=== PATIENT | female | born 1990 | race American Indian/Alaskan Native ===

== ENCOUNTER 2018-12-19 08:54 | Inpatient (IN) | payer MEDICAID ==
--- NOTE | 2018-12-19 09:36 | History and Physical Report ---
History of Present Illness Date of examination: 12/19/18 Date of admission: 12/19/2018 Chief complaint: My water broke History of present illness: Pt is a 28 year old who presents with rom and contractions at 40.3 weeks. Pt has had an uncomplicated course . She is HSV positive and GBS positive. 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 Family/Genetic History: none Social history: - Obstetrical History Expected Date of Delivery: 12/15/18 Actual Gestation: 40 Week(s) 4 Day(s) : 5 Para: 3 Number of Living Children: 3 Medications and Allergies Allergies Allergy/AdvReac Type Severity Reaction Status Date / Time No Known Allergies Allergy Unverified 03/28/15 14:24 Home Medications Medication Instructions Recorded Confirmed Last Taken Type Ciprofloxacin HCl [Ciprofloxacin 500 mg PO BID #14 tablet 03/28/15 Unknown Rx TAB] Ibuprofen [Motrin 800 MG tab] 800 mg PO Q8HR PRN #30 tablet 03/28/15 Unknown Rx Ondansetron [Zofran Odt] 4 mg PO Q6HR #20 tab.rapdis 03/28/15 Unknown Rx Active Meds: Active Medications Butorphanol Tartrate (Stadol) 2 mg IV Q2H PRN PRN Reason: Pain , Severe (7-10) Ephedrine Sulfate (Ephedrine Sulfate) 10 mg IV Q2M PRN PRN Reason: Hypotension Fentanyl (Sublimaze) 100 mcg IV Q2H PRN PRN Reason: Labor Pain Oxytocin/Sodium Chloride (Pitocin/Ns 20 Unit/1000ml Drip) 20 units in 1,000 mls @ 125 mls/hr IV DIRECT WEST Oxytocin/Sodium Chloride (Pitocin/Ns 30 Unit/500ml) 30 units in 500 mls @ 1 mls/hr IV TITR WEST; Protocol Oxytocin/Sodium Chloride (Pitocin/Ns 30 Unit/500ml) 30 units in 500 mls @ 2 mls/hr IV TITR WEST; Protocol Lactated Ringer's (Lactated Ringers) 1,000 mls @ 125 mls/hr IV DIRECT WEST Ampicillin Sodium (Ampicillin/Ns 1 Gm/50 Ml) 1 gm in 50 mls @ 100 mls/hr IV Q4HR WEST; Protocol Ampicillin Sodium (Ampicillin/Ns 2 Gm/100 Ml) 2 gm in 100 mls @ 100 mls/hr IV ONCE ONE; Protocol Stop: 12/19/18 10:07 Lidocaine (Xylocaine 2%) 20 ml INFILTRATI ONCE ONE Stop: 12/19/18 09:09 Mineral Oil (Mineral Oil) 30 ml PO QHS PRN PRN Reason: Constipation Nalbuphine HCl (Nubain) 10 mg IV Q2H PRN PRN Reason: Pain, Moderate (4-6) Ondansetron HCl (Zofran) 4 mg IV Q8H PRN PRN Reason: Nausea And Vomiting Terbutaline Sulfate (Brethine) 0.25 mg SUB-Q ONCE PRN PRN Reason: Hyperstimulation/Hypertonicity Terbutaline Sulfate (Brethine) 0.25 mg IVP ONCE PRN PRN Reason: Hyperstimulation/Hypertonicity Review of Systems All systems: negative Eyes: deferred Gastrointestinal: abdominal pain Genitourinary: leakage of fluid, contractions - Physical Exam Cardiovascular: Regular rate, Normal S1, Normal S2 Lungs: Positive: Clear to auscultation, Normal air movement Abdomen: Positive: normal appearance, soft, normal bowel sounds Genitourinary (Female): Positive: normal external genitalia, normal perenium Vulva: both: normal Vagina: Positive: normal moisture Uterus: Positive: normal size, normal contour Extremities: Positive: normal - Obstetrical Cervical Dilatation: 7 Cervical Effacement Percentage: 80 station: 0 Uterine Contraction Pattern: Regular Uterine Tone Measurement Phase: Contraction Uterine Contraction Intensity: Moderate Results All other labs normal. Assessment and Plan IUP at 40.4 weeks in active labor. Admit for delivery. Will try to treat for GBS status with ampicillin. Anticipate .
[2018-12-19] MEDS ORDERED: PITOCin/NS 20 UNIT/1000ML DRIP 20 UNITS/1,000 ML BAG IV SCH (10:00)
[2018-12-19 10:03] LABS: Hematocrit 32.1 % (30.3-42.9); Hemoglobin 10.4 gm/dl (10.1-14.3); Mean Corpuscular HGB Conc 33 % (30-34); Mean Corpuscular Volume 92 fl (79-97); Platelet Count 163 K/mm3 (140-440); Red Blood Count 3.48 M/mm3 (3.65-5.03); Red Cell Distribution Width 14.2 % (13.2-15.2)
--- NOTE | 2018-12-19 10:19 | Procedure Note ---
OB Delivery Note - Delivery Date of Delivery: 12/19/18 Surgeon: FESTUS JEFFRIES Estimated blood loss: 300cc - Vaginal Delivery presentation: vertex Delivery position: OA Delivery induction: none Delivery augmentation: rupture of membranes Delivery monitor: external FHT, external uterine Route of delivery: Delivery placenta: spontaneous Delivery cord: 3 umbilical vessels Episiotomy: none Delivery laceration: none Anesthesia: none - A at 1 minute: 8 at 5 minutes: 9 Gender: Male (7 POUNDS 12 OUNCES)
[2018-12-19] MEDS ORDERED: PITOCin/NS 30 UNIT/500ML 30 UNITS/500 ML BAG IV SCH ×2 (11:00)
[2018-12-19] MEDS ORDERED: XYLOCAINE 2% INFILTRATI NR (11:00)
[2018-12-19] MEDS ORDERED: STADOL IV PRN (11:00)
[2018-12-19] MEDS ORDERED: ZOFRAN IV PRN ×2 (11:00→13:57)
[2018-12-19] MEDS ORDERED: LACTATED RINGERS 1,000 ML IV SCH (11:00)
[2018-12-19] MEDS ORDERED: SUBLIMAZE IV PRN (11:00)
[2018-12-19] MEDS ORDERED: BRETHINE IVP PRN (11:00)
[2018-12-19] MEDS ORDERED: MINERAL OIL PO PRN (11:00)
[2018-12-19] MEDS ORDERED: NUBAIN IV PRN (11:00)
[2018-12-19] MEDS ORDERED: NORCO 5/325 PO PRN (11:22)
[2018-12-19] MEDS ORDERED: BRETHINE SUB-Q PRN (11:30)
[2018-12-19] MEDS ORDERED: AMPICILLIN/NS 2 GM/100 ML 2 GM/100 ML BAG IV ONE (12:00)
[2018-12-19] MEDS ORDERED: AMPICILLIN/NS 1 GM/50 ML 1 GM/50 ML BAG IV SCH (13:30)
[2018-12-19] MEDS ORDERED: PHENERGAN PO PRN (13:57)
[2018-12-19] MEDS ORDERED: BENADRYL PO PRN (13:57)
[2018-12-19] MEDS ORDERED: TUCKS PAD TP PRN (13:57)
[2018-12-19] MEDS ORDERED: TORADOL IV PRN (13:57)
[2018-12-19] MEDS ORDERED: TYLENOL PO PRN (13:57)
[2018-12-19] MEDS ORDERED: DULCOLAX PR PRN (13:57)
[2018-12-19] MEDS ORDERED: LANSINOH TP PRN (13:57)
[2018-12-19] MEDS ORDERED: SODIUM CHLORIDE FLUSH SYRINGE 10 ML IV NR (13:57)
[2018-12-19] MEDS ORDERED: PHENERGAN PR PRN (13:57)
[2018-12-19] MEDS: IBUPROFEN PO SCH (17:22)
[2018-12-19] MEDS: COLACE PO SCH (21:42)
[2018-12-19] MEDS: SENOKOT S PO SCH (21:44)
[2018-12-19] MEDS ORDERED: MILK OF MAGNESIA PO PRN (22:00)
[2018-12-20] MEDS: IBUPROFEN PO SCH ×4 (01:21→21:56)
[2018-12-20 01:23] LABS: Hematocrit 28.9 % (30.3-42.9); Hemoglobin 9.3 gm/dl (10.1-14.3)
[2018-12-20] MEDS: PRENATAL VITAMIN PO SCH (09:58)
[2018-12-20] MEDS: COLACE PO SCH ×2 (09:59→21:56)
[2018-12-20] MEDS: SENOKOT S PO SCH (11:26)
--- NOTE | 2018-12-20 11:59 | Progress Note ---
Assessment and Plan PPD1 s/p VSS Acute anemia- iron supplementation Discharge to home tomorrow Subjective - Subjective Date of service: 12/20/18 Principal diagnosis: Interval history: Pt is PPD1 s/p Patient reports: appetite normal, voiding normally, pain well controlled, ambulating normally [place]: doing well, nursing well Objective - Vital Signs Latest vital signs: Vital Signs Temp Pulse Resp BP BP Pulse Ox 12/20/18 08:56 97.9 F 18 111/52 12/20/18 08:00 97.9 F 78 18 111/52 12/20/18 01:30 97.9 F 75 20 104/62 12/19/18 21:10 98.4 F 82 22 114/70 12/19/18 16:06 97.5 F L 62 18 101/64 98 12/19/18 13:42 98.6 F 75 16 93/58 97 Intake and Output 12/19/18 12/20/18 12/20/18 23:59 07:59 15:59 Intake Total 240 360 Output Total 1600 600 Balance -1360 -240 Intake: Intake, Free Water 240 360 Output: Urine 1600 600 Void 1600 600 Other: Total, Output Amount 800 600 # Voids Void 1 - Exam Breasts: Present: deferred Lungs: Present: Normal air movement Abdomen: Present: normal appearance, soft Uterus: Present: normal, firm, fundal height below umbilicus Extremities: Present: normal - Labs Labs: Abnormal lab results 12/20/18 Range/Units 00:48 Hgb 9.3 L (10.1-14.3) gm/dl Hct 28.9 L (30.3-42.9) %
--- NOTE | 2018-12-20 13:32 | Discharge Summary ---
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 Met discharge criteria on PPD1. She desires fertility awareness method and condoms . Condition at discharge: Good Disposition: DC-01 TO HOME OR SELFCARE Plan - Discharge Medications Prescriptions: Ferrous Sulfate [Ferrous Sulfate 324 MG] 324 mg PO BID #60 tablet. Ibuprofen [Motrin] 600 mg PO Q6H PRN #60 tablet PRN Reason: Pain - Provider Discharge Summary Activity: routine, no sex for 6 weeks, no heavy lifting 4 weeks, no strenuous exercise Diet: routine Instructions: routine Additional instructions: [] Smoking cessation referral if applicable(refer to patient education folder for contact #) [] Refer to [facility] Booklet Call your doctor immediately for: * Fever > 100.5 * Heavy vaginal bleeding ( >1 pad per hour) * Severe persistent headache * Shortness of breath * Reddened, hot, painful area to leg or breast * Drainage or odor from incision. * Keep incision clean and dry at all times and follow doctor's instructions regarding bathing/showering - Follow up plan Follow up: FESTUS JEFFRIES MD [Family Provider] - 6 Weeks (Please call to schedule an appointment.)
[2018-12-21] MEDS: SENOKOT S PO SCH ×2 (04:23→11:56)
[2018-12-21 09:13] VITALS: BP 107/61
[2018-12-21] MEDS: COLACE PO SCH (10:49)
[2018-12-21] MEDS: PRENATAL VITAMIN PO SCH (10:49)
[2018-12-21] MEDS: IBUPROFEN PO SCH (11:57)
--- NOTE | 2018-12-21 12:44 | Progress Note ---
Assessment and Plan PPD2 s/p VSS Acute anemia- iron supplementation Discharge to home today Subjective - Subjective Date of service: 12/21/18 Principal diagnosis: Interval history: Pt is PPD2 s/p Patient reports: appetite normal, voiding normally, pain well controlled, ambulating normally : doing well, nursing well Objective - Vital Signs Latest vital signs: Vital Signs Temp Pulse Resp BP Pulse Ox 12/21/18 07:35 98.5 F 59 L 18 107/61 99 12/21/18 02:12 98.6 F 78 18 101/54 96 12/20/18 16:59 97.6 F 73 18 106/71 97 Intake and Output 12/20/18 12/21/18 12/21/18 23:59 07:59 15:59 Intake Total 640 720 Balance 640 720 Intake: Oral 460 Intake, Free Water 180 720 Other: Total, Intake Amount 460 # Voids Void 3 2 # Bowel Movements 0 - Exam Breasts: Present: normal Lungs: Present: Normal air movement Abdomen: Present: normal appearance, soft Uterus: Present: normal, firm, fundal height below umbilicus Extremities: Present: normal
== END 2018-12-21 13:52 | disposition home or self-care (01) | DRG 774 ==
LOC: TRG 08:54 → LD 09:38 → OB 13:52
PROVIDERS: ADMIT Obstetrics & Gynecology; ATTEND Obstetrics & Gynecology
PROC: 10E0XZZ Delivery of Products of Conception, External Approach (ICD-10-PCS; principal; 2018-12-19)
DX: O99.824 Streptococcus B carrier state complicating childbirth (principal); O98.52 Other viral diseases complicating childbirth; B00.9 Herpesviral infection, unspecified; O99.02 Anemia complicating childbirth; Z3A.40 40 weeks gestation of pregnancy; Z37.0 Single live birth; Z79.899 Other long term (current) drug therapy
CPT/HCPCS: 36415; 85014; 85018; 85027; 86592; 86850; 86900; 86901; G0378; A6250; J0290; J2590; J7120

== ENCOUNTER 2021-09-25 22:57 | Emergency (ER) | payer MEDICAID ==
[2021-09-26 00:41] LABS: Basophils % (Auto) 0.5 % (0.0-1.8); Eosinophils % (Auto) 0.6 % (0.0-4.3); Hematocrit 34.9 % (30.3-42.9); Hemoglobin 11.4 gm/dl (10.1-14.3); Lymphocytes # (Auto) 1.5 K/mm3 (1.2-5.4); Lymphocytes % (Auto) 18.8 % (13.4-35.0); Mean Corpuscular HGB Conc 33 % (30-34); Mean Corpuscular Volume 91 fl (79-97); Monocytes # (Auto) 0.5 K/mm3 (0.0-0.8); Monocytes % (Auto) 6.9 % (0.0-7.3); Platelet Count 154 K/mm3 (140-440); Red Blood Count 3.85 M/mm3 (3.65-5.03); Red Cell Distribution Width 13.5 % (13.2-15.2)
[2021-09-26 00:55] LABS: Alanine Aminotransferase 6 units/L (7-56); Albumin 4.2 g/dL (3.9-5); Blood Urea Nitrogen 9 mg/dL (7-17); Calcium 9.1 mg/dL (8.4-10.2); Hemolysis Index 2
[2021-09-26 00:56] LABS: BUN/Creatinine Ratio 15
[2021-09-26 04:17] LABS: Bacteria,Urine 1+ /HPF (Negative); Mucus,Urine 3+ /HPF
[2021-09-26 04:38] LABS: Color,Urine Yellow (Yellow)
[2021-09-26 04:39] LABS: Bilirubin,Urine NEG (Negative); Blood,Urine NEG (Negative); Urobilinogen,Urine < 2.0 mg/dL (<2.0)
[2021-09-26] MEDS ORDERED: ONDANSETRON 4 MG ODT TAB PO ONE (06:33)
[2021-09-26 08:26] VITALS: BP 96/56
--- NOTE | 2021-09-26 08:33 | Emergency Department Report ---
ED Female HPI - General Chief complaint: Abdominal Pain Stated complaint: 8WKS PREG/EMESIS Time Seen by Provider: 09/26/21 08:01 Source: patient Mode of arrival: Ambulatory Limitations: No Limitations - History of Present Illness Initial comments: Patient is a 31-year-old female that comes to the ER with nausea and vomiting of . She denies vaginal bleeding or dysuria. She is ambulatory, nontoxic [id number] on arrival to the ER. Patient endorses suprapubic abdominal pain. She denies fever or chills. Denies back pain. Denies chest pain or cough. -: Gradual, days(s) Consistency: intermittent Improves with: none Worsens with: none Are you Now?: Yes Associated Symptoms: denies other symptoms - Related Data Sexually active: Yes Previous Rx's Medication Instructions Recorded Last Taken Type Ondansetron [Zofran Odt] 4 mg PO Q8HR PRN #10 tab.rapdis 09/26/21 Unknown Rx Allergies Allergy/AdvReac Type Severity Reaction Status Date / Time No Known Allergies Allergy Verified 09/26/21 08:10 ED Review of Systems ROS: Stated complaint: 8WKS PREG/EMESIS Other details as noted in HPI Comment: All other systems reviewed and negative ED Past Medical Hx - Past Medical History Previous Medical History?: No Hx Congestive Heart Failure: No Hx Diabetes: No Hx Asthma: No Hx COPD: No - Surgical History Past Surgical History?: No - Family History Family history: no significant - Social History Smoking Status: Never Smoker Substance Use Type: None - Medications Home Medications: Home Medications Medication Instructions Recorded Confirmed Last Taken Type Ondansetron [Zofran Odt] 4 mg PO Q8HR PRN #10 tab.rapdis 09/26/21 Unknown Rx ED Physical Exam - General Limitations: No Limitations General appearance: alert, in no apparent distress - Head Head exam: Present: atraumatic, normocephalic - Eye Eye exam: Present: normal appearance - ENT ENT exam: Present: mucous membranes moist - Neck Neck exam: Present: normal inspection - Respiratory Respiratory exam: Present: normal lung sounds bilaterally. Absent: respiratory distress - Cardiovascular Cardiovascular Exam: Present: regular rate, normal rhythm. Absent: systolic murmur, diastolic murmur, rubs, gallop - GI/Abdominal GI/Abdominal exam: Present: soft, normal bowel sounds - Extremities Exam Extremities exam: Present: normal inspection - Back Exam Back exam: Present: normal inspection - Neurological Exam Neurological exam: Present: alert, oriented X3 - Psychiatric Psychiatric exam: Present: normal affect, normal mood - Skin Skin exam: Present: warm, dry, intact, normal color. Absent: rash ED Course Vital Signs 09/25/21 09/26/21 23:04 08:25 Temperature 99.1 F 98.1 F Pulse Rate 69 56 L Respiratory 18 18 Rate Blood Pressure 94/54 Blood Pressure 96/56 [Left] O2 Sat by Pulse 98 100 Oximetry ED Medical Decision Making - Lab Data Result diagrams: 09/26/21 00:00 09/26/21 00:00 - Radiology Data Radiology results: report reviewed, image reviewed See report - Medical Decision Making Lab Results 09/25/21 09/26/21 09/26/21 Range/Units Unknown 00:00 00:00 WBC 7.9 (4.5-11.0) K/mm3 RBC 3.85 (3.65-5.03) M/mm3 Hgb 11.4 (10.1-14.3) gm/dl Hct 34.9 (30.3-42.9) % MCV 91 (79-97) fl MCH 30 (28-32) pg MCHC 33 (30-34) % RDW 13.5 (13.2-15.2) % Plt Count 154 (140-440) K/mm3 Lymph % (Auto) 18.8 (13.4-35.0) % [place] % (Auto) 6.9 (0.0-7.3) % Eos % (Auto) 0.6 (0.0-4.3) % Baso % (Auto) 0.5 (0.0-1.8) % Lymph # (Auto) 1.5 (1.2-5.4) K/mm3 [place] # (Auto) 0.5 (0.0-0.8) K/mm3 Eos # (Auto) 0.0 (0.0-0.4) K/mm3 Baso # (Auto) 0.0 (0.0-0.1) K/mm3 Seg Neutrophils % 73.2 H (40.0-70.0) % Seg Neutrophils # 5.8 (1.8-7.7) K/mm3 Sodium 136 L (137-145) mmol/L Potassium 4.1 (3.6-5.0) mmol/L Chloride 102.0 (98-107) mmol/L Carbon Dioxide 23 (22-30) mmol/L Anion Gap 15 mmol/L BUN 9 (7-17) mg/dL Creatinine 0.6 (0.6-1.2) mg/dL Estimated GFR > 60 ml/min BUN/Creatinine Ratio 15 % Glucose 74 (65-100) mg/dL Calcium 9.1 (8.4-10.2) mg/dL Total Bilirubin 0.50 (0.1-1.2) mg/dL AST 12 (5-40) units/L ALT 6 L (7-56) units/L Alkaline Phosphatase 37 (35-129) units/L Total Protein 6.7 (6.3-8.2) g/dL Albumin 4.2 (3.9-5) g/dL Albumin/Globulin Ratio 1.7 % HCG, Quant (0-4) mIU/mL Urine Color Yellow (Yellow) Urine Turbidity Clear (Clear) Urine pH 6.0 (5.0-7.0) Ur Specific [place] 1.015 (1.003-1.030) Urine Protein 30 mg/dl (Negative) mg/dL Urine Glucose (UA) Neg (Negative) mg/dL Urine Ketones Trace (Negative) mg/dL Urine Blood Neg (Negative) Urine Nitrite Neg (Negative) Ur Reducing Substances Not Reportable Urine Bilirubin Neg (Negative) Urine Ictotest Not Reportable Urine Urobilinogen < 2.0 (<2.0) mg/dL Ur Leukocyte Esterase Neg (Negative) Urine WBC (Auto) 2.0 (0.0-6.0) /HPF Urine RBC (Auto) 1.0 (0.0-6.0) /HPF U Epithel Cells (Auto) 7.0 (0-13.0) /HPF Urine Bacteria (Auto) 1+ (Negative) /HPF Urine Mucus 3+ /HPF 09/26/21 Range/Units 00:00 WBC (4.5-11.0) K/mm3 RBC (3.65-5.03) M/mm3 Hgb (10.1-14.3) gm/dl Hct (30.3-42.9) % MCV (79-97) fl MCH (28-32) pg MCHC (30-34) % RDW (13.2-15.2) % Plt Count (140-440) K/mm3 Lymph % (Auto) (13.4-35.0) % [place] % (Auto) (0.0-7.3) % Eos % (Auto) (0.0-4.3) % Baso % (Auto) (0.0-1.8) % Lymph # (Auto) (1.2-5.4) K/mm3 [place] # (Auto) (0.0-0.8) K/mm3 Eos # (Auto) (0.0-0.4) K/mm3 Baso # (Auto) (0.0-0.1) K/mm3 Seg Neutrophils % (40.0-70.0) % Seg Neutrophils # (1.8-7.7) K/mm3 Sodium (137-145) mmol/L Potassium (3.6-5.0) mmol/L Chloride (98-107) mmol/L Carbon Dioxide (22-30) mmol/L Anion Gap mmol/L BUN (7-17) mg/dL Creatinine (0.6-1.2) mg/dL Estimated GFR ml/min BUN/Creatinine Ratio % Glucose (65-100) mg/dL Calcium (8.4-10.2) mg/dL Total Bilirubin (0.1-1.2) mg/dL AST (5-40) units/L ALT (7-56) units/L Alkaline Phosphatase (35-129) units/L Total Protein (6.3-8.2) g/dL Albumin (3.9-5) g/dL Albumin/Globulin Ratio % HCG, Quant [id number] H (0-4) mIU/mL Urine Color (Yellow) Urine Turbidity (Clear) Urine pH (5.0-7.0) Ur Specific [place] (1.003-1.030) Urine Protein (Negative) mg/dL Urine Glucose (UA) (Negative) mg/dL Urine Ketones (Negative) mg/dL Urine Blood (Negative) Urine Nitrite (Negative) Ur Reducing Substances Urine Bilirubin (Negative) Urine Ictotest Urine Urobilinogen (<2.0) mg/dL Ur Leukocyte Esterase (Negative) Urine WBC (Auto) (0.0-6.0) /HPF Urine RBC (Auto) (0.0-6.0) /HPF U Epithel Cells (Auto) (0-13.0) /HPF Urine Bacteria (Auto) (Negative) /HPF Urine Mucus /HPF Vital Signs 09/25/21 09/26/21 23:04 08:25 Temperature 99.1 F 98.1 F Pulse Rate 69 56 L Respiratory 18 18 Rate Blood Pressure 94/54 Blood Pressure 96/56 [Left] O2 Sat by Pulse 98 100 Oximetry Labs noted. UA noted. Ultrasound noted. She was hydrated and given Zofran in the ER. At that point her nausea vomiting and abdominal pain went away. Her liver labs have been reviewed with her. Ultrasound reviewed. On discharge exam patient ambulatory, nontoxic [id number]. Patient being discharged home with discharge plan of care including diet, medications activity and follow-up. She verbalizes understanding. - Differential Diagnosis Rule out UTI, AB, ectopic Critical care attestation.: If time is entered above; I have spent that time in minutes in the direct care of this critically ill patient, excluding procedure time. ED Disposition Clinical Impression: Disposition: HOME / SELF CARE / HOMELESS Is pt being admited?: No Does the pt Need Aspirin: No Condition: Stable Instructions: First Trimester of , [id number], Abdominal Pain (ED) Additional Instructions: Tylenol for pain. Zofran for nausea. Follow-up with OB in 48 hours for recheck. I have given you referral below. Ultrasound and labs normal today. hcg [id number] Ultrasound measuring fetus at 8 weeks 6 days Prescriptions: Ondansetron [Zofran Odt] 4 mg PO Q8HR PRN #10 tab.rapdis PRN Reason: Vomiting Referrals: KATHARINA LERNER MD [Primary Care Provider] - 3-5 Days PAOLA WOODS MD [Staff Physician] - 3-5 Days Forms: Work/School Release Form(ED) Time of Disposition: 11:59
--- NOTE | 2021-09-26 11:47 | Ultrasound Report ---
ULTRASOUND OBSTETRIC INDICATION / CLINICAL INFORMATION: cramping in preg. Clinical Gestational Age (GA) in weeks, days: 8, 6 TECHNIQUE: Transabdominal. COMPARISON: None available. FINDINGS: GESTATIONAL SAC: Well-defined oval shape and intrauterine in location. YOLK SAC: No significant abnormality. EMBRYO/FETUS: No significant abnormality. - Cesar Chavez-Rump Length = 2.1 cm = 8, 5 weeks, days - Heart Rate, beats per minute (if present) = 164 ADNEXA: No significant abnormality. FREE FLUID: Minimal ADDITIONAL FINDINGS: There is a small subchorionic hemorrhage. IMPRESSION: 1. Single, living intrauterine with estimated sonographic age of 8, 6 weeks, days. Small s ubchorionic hemorrhage. Signer Name: Judson Collins DO Signed: 09/26/2021 9:13 AM Workstation Name: [id number]
== END 2021-09-26 12:16 | disposition home or self-care (01) ==
LOC: ED 22:57
DX: O21.9 Vomiting of pregnancy, unspecified (principal); Z3A.01 Less than 8 weeks gestation of pregnancy
CPT/HCPCS: 36415; 76801; 80053; 81001; 84702; 85025; 99284; J3490; Q0162